=== PATIENT | male | born 1970 | race Caucasian/White ===

== ENCOUNTER 2017-05-12 08:57 | Emergency (ER) | payer BC ==
[2017-05-12 09:05] VITALS: BP 127/78; PULSE 18; TEMP 98.1; BMI 19.9
--- NOTE | 2017-05-12 10:28 | PDOC ---
History of Present Illness - General Chief Complaint: Pain Stated Complaint: BACK PAIN Time Seen by Provider: 05/12/17 10:11 History Source: Patient Exam Limitations: No Limitations - History of Present Illness Initial Comments: 05/12/17 10:27 Chief complaint: Left lower back pain intermittently for 3 months History of present illness: Patient is a 46-year-old male here today complaining of having intermittent left-sided lower back pain 3 months this when getting up from a seated position or certain movements. Patient denies any radiation of pain down buttocks or legs or any weakness or numbness of legs or any saddle anesthesia or any incontinency. Patient denies any hematuria. Patient denies any injuries. Patient reports that pain at times is sharp and can be as much as a 9 out of 10 when getting up from a seated position. Patient does not want anything for pain presently. Occurred: reports: other (3 mths intermittent left lower back pain ) Severity: reports: moderate Pain Location: reports: back (left lower) Method of Injury: Yes: unknown Modifying Factors: improves with: None Loss of Consciousness: no loss of consciousness Associated Symptoms (Fall): denies symptoms Past History - Past Medical History Allergies/Adverse Reactions: Allergies Allergy/AdvReac Type Severity Reaction Status Date / Time piperacillin sodium Allergy Verified 05/12/17 09:05 [From Zosyn] tazobactam sodium Allergy Verified 05/12/17 09:05 [From Zosyn] vancomycin Allergy Verified 05/12/17 09:05 Home Medications: Ambulatory Orders Naproxen [Naprosyn -] 500 mg PO Q12H PRN #14 tablet 05/12/17 COPD: No Other medical history: NONE - Suicide/Smoking/Psychosocial Hx Smoking History: Never smoked Hx Alcohol Use: Yes Drug/Substance Use Hx: No Substance Use Type: None Review of Systems - Review of Systems Able to Perform ROS?: Yes Constitutional: No: Symptoms Reported HEENTM: No: Symptoms Reported Respiratory: No: Symptoms reported Cardiac (ROS): No: Symptoms Reported ABD/GI: No: Symptoms Reported : No: Symptoms Reported Musculoskeletal: Yes: Back Pain (left lumbar paraspinal muscle tenderness worse with getting up or certain movements for 3 mths ) Integumentary: No: Symptoms Reported Neurological: No: Symptoms reported *Physical Exam - Vital Signs Last Vital Signs Temp Pulse Resp BP Pulse Ox 98.1 F 18 L 65 H 127/78 98 05/12/17 09:03 05/12/17 09:03 05/12/17 09:03 05/12/17 09:03 05/12/17 09:03 - Physical Exam General Appearance: Yes: Appropriately Dressed Respiratory/Chest: positive: Lungs Clear, Normal Breath Sounds. negative: Chest Tender, Respiratory Distress Cardiovascular: positive: Regular Rhythm, Regular Rate, S1, S2 Musculoskeletal: positive: Normal Inspection, Other (left paraspinal muscle tenderness, ). negative: CVA Tenderness, CVA Tenderness (R), CVA Tenderness (L) , Decreased Range of Motion, Muscle Spasm, Vertebral Tenderness (with no step offs ) Extremity: positive: Normal Capillary Refill, Normal Inspection, Normal Range of Motion Integumentary: positive: Normal Color Neurologic: positive: Alert, Normal Response, Motor Strength 5/5 (b/l lower extremities ), Respond to painful stimul, Responsive (b/l ), Other (negative SLR b/l ). negative: Numbness, Sensory Deficit (b/l lower extremities ) Deep Tendon Reflexes: Knee (L): 4+, Knee (R): 4+ Medical Decision Making - Medical Decision Making 05/12/17 10:28 Patient is a 46-year-old male here today complaining of having intermittent left -sided lower back pain 3 months this when getting up from a seated position or certain movements. Patient denies any radiation of pain down buttocks or legs or any weakness or numbness of legs or any saddle anesthesia or any incontinency. Patient denies any hematuria. Patient denies any injuries. Patient reports that pain at times is sharp and can be as much as a 9 out of 10 when getting up from a seated position. Patient does not want anything for pain presently. r/o vertebra abnormality r/o hematuria PLAN: xray lumbar sacral spine no no fracture noted questionable narrowing of vertebrae L5-S1 per u/a 05/12/17 11:10 Laboratory Tests 05/12/17 10:34 Urine Color Yellow Urine Appearance Clear Urine pH 7.0 Ur Specific [place] 1.023 Urine Protein Negative Urine Glucose (UA) Negative Urine Ketones Negative Urine Blood Negative Urine Nitrite Negative Urine Bilirubin Negative Urine Urobilinogen 4.0 e.u/dl Will have patient follow up with orthopedist for further evaluation will discharge on Naprosyn 500 mg every 12 hours when necessary pain #14 tabs *DC/Admit/Observation/Transfer Diagnosis at time of Disposition: Low back pain Qualifiers: Chronicity: unspecified Back pain laterality: left Sciatica presence: without sciatica Qualified Code(s): M54.5 - Low back pain - Discharge Dispostion Disposition: HOME Condition at time of disposition: Stable - Referrals Referrals: Jeremiah Garza MD [Staff Physician] - - Patient Instructions Additional Instructions: Avoid any lifting or exercise using your back muscles Follow-up with orthopedist for further evaluation as soon as possible Return to emergency room if symptoms worsen any weakness of legs or numbness of legs or groin or loss of control of bladder or bowel movements Patient voiced understanding of discharge instructions and all questions were answered - Post Discharge Activity
[2017-05-12 11:05] LABS: URINE APPEARANCE CLEAR; URINE BILIRUBIN NEGATIVE (NEGATIVE); URINE BLOOD NEGATIVE (NEGATIVE); URINE COLOR YELLOW; URINE GLUCOSE (UA) NEGATIVE (NEGATIVE); URINE KETONE NEGATIVE (NEGATIVE); URINE NITRITE NEGATIVE (NEGATIVE); URINE PROTEIN NEGATIVE (NEGATIVE); URINE UROBILINOGEN 4.0 E.U/dl mg/dL (0.2-1.0)
[2017-05-12 16:37] LABS: URINE LEUK ESTERASE Negative (NEGATIVE)
== END 2017-05-12 11:28 | disposition home or self-care (01) ==
LOC: JERFT 08:57
DX: M54.5 Low back pain (principal)
CPT/HCPCS: 72100-TC; 81003; 99281-25